=== PATIENT | male | born 1970 | race Caucasian/White ===

== ENCOUNTER 2017-11-19 17:25 | Emergency (ER) | payer SELFPAY ==
[~2017-11-19] VITALS: Ht 172.7 cm; Wt 127.0 kg
[2017-11-19 18:52] LABS: HEMATOCRIT 40.5 % (39.0-50.0); HEMOGLOBIN 12.7 g/dl (14.0-18.0); IMMATURE GRANULOCYTES 0.5 % (0.0-1.0); MEAN CELL VOLUME 85.4 fL CALC (80.0-100.0); MEAN CORPUSCULAR HGB 26.8 pG CALC (26.0-32.0); MEAN CORPUSCULAR HGB CONC 31.4 g/L CALC (32.0-36.0); NEUT# 8.56 thou/uL (1.82-7.42); RED BLOOD COUNT 4.74 mill/uL (4.70-6.10); RED CELL DISTRI WIDTH 17.2 % (11.5-15.5)
[2017-11-19 19:12] LABS: ANION GAP 13 (6-22 (CALC)); BUN 13 mg/dL (9-20); BUN/CREATININE RATIO 18 (12-20 (CALC)); CARBON DIOXIDE 25 mmol/l (22-30); CHLORIDE 101 mmol/l (95-108); CREATININE 0.7 mg/dL (0.7-1.3); GFR > 60 ML/MIN (>=60 (CALC)); GFR FOR AFR.AMER. > 60 ML/MIN (>=60 (CALC)); SODIUM 135 mmol/l (137-146)
[2017-11-19 19:25] LABS: C-REACTIVE PROTEIN 17.8 mg/dL (0-0.9)
[2017-11-20] VITALS: BP 132/78
== END 2017-11-20 | disposition short-term general hospital (02) | DRG 603 ==
LOC: EDBD 17:25 → ED 17:25
PROVIDERS: Family Medicine
DX: L02.415 Cutaneous abscess of right lower limb (principal); M00.9 Pyogenic arthritis, unspecified; M25.551 Pain in right hip; R50.9 Fever, unspecified; G89.29 Other chronic pain

== ENCOUNTER 2017-12-11 11:01 | Emergency (ER) | payer OTHER ==
[~2017-12-11] VITALS: Ht 172.7 cm; Wt 127.3 kg
[~2017-12-11 11:01] MED LIST: CEFTRIAXONE2 G1 IJ; TRAZODONE100 MG PO
[2017-12-11] MEDS ORDERED: PERCOCET 10/31 COMBO PO (11:45)
[2017-12-11 11:50] VITALS: BP 117/56
== END 2017-12-11 11:50 | disposition home or self-care (01) ==
LOC: ED 11:01
DX: M25.551 Pain in right hip (principal); G89.29 Other chronic pain; F17.210 Nicotine dependence, cigarettes, uncomplicated; Z86.14 Personal history of Methicillin resistant Staphylococcus aureus infection

== ENCOUNTER 2017-12-14 14:17 | Emergency (ER) | payer SELFPAY ==
[~2017-12-14] VITALS: Ht 172.7 cm; Wt 127.3 kg
[~2017-12-14 14:17] MED LIST changes: +PERCOCET 10/31 COMBO PO
[2017-12-14 15:59] LABS: ALBUMIN 3.2 g/dL (3.2-5.0); ALKALINE PHOSPHATASE 225 u/l (38-126); BILIRUBIN, TOTAL 1.1 mg/dL (0.0-1.4); BUN 7 mg/dL (9-20); BUN/CREATININE RATIO 13 (12-20 (CALC)); CHLORIDE 102 mmol/l (95-108); CREATININE 0.5 mg/dL (0.7-1.3); GFR > 60 ML/MIN (>=60 (CALC)); GFR FOR AFR.AMER. > 60 ML/MIN (>=60 (CALC)); POTASSIUM 4.6 mmol/l (3.5-5.1); SGPT/ALT 18 u/l (21-72); SODIUM 135 mmol/l (137-146); TOTAL PROTEIN 8.2 g/dL (6.3-8.2)
[2017-12-14 16:00] LABS: ANION GAP 22 (6-22 (CALC)); CARBON DIOXIDE 16 mmol/l (22-30); SGOT/AST 32 u/l (17-59)
[2017-12-14 16:16] LABS: HEMATOCRIT 25.8 % (39.0-50.0); HEMOGLOBIN 7.9 g/dl (14.0-18.0); IMMATURE GRANULOCYTES 1.9 % (0.0-5.0); MEAN CELL VOLUME 85.7 fL CALC (80.0-100.0); MEAN CORPUSCULAR HGB 26.2 pG CALC (26.0-32.0); MEAN CORPUSCULAR HGB CONC 30.6 g/L CALC (32.0-36.0); NEUT# 20.21 thou/uL (1.82-7.42); RED BLOOD COUNT 3.01 mill/uL (4.70-6.10); RED CELL DISTRI WIDTH 18.1 % (11.5-15.5)
[2017-12-14 16:21] LABS: URINE BILIRUBIN - DIPSTICK NEGATIVE (NEGATIVE); URINE BLOOD DIPSTICK MODERATE (NEGATIVE); URINE COLOR YELLOW; URINE GLUCOSE - DIPSTICK NEGATIVE (NEGATIVE); URINE KETONE NEGATIVE (NEGATIVE); URINE LEUK ESTERASE NEGATIVE (NEGATIVE); URINE NITRITE - DIPSTICK NEGATIVE (Negative); URINE PROTEIN - DIPSTICK TRACE mg/dL (NEG-TRACE); URINE SPECIFIC GRAVITY 1.015
[2017-12-14 16:29] LABS: URINE CLARITY SL CLOUDY
[2017-12-14 16:30] LABS: BARBITURATES NEGATIVE (NEGATIVE); COCAINE NEGATIVE (NEGATIVE); METHADONE NEGATIVE (NEGATIVE); TETRAHYDROCANNABIONOL POSITIVE (NEGATIVE); TRICYLIC ANTIDEPRESSANTS NEGATIVE (NEGATIVE); URINE EPITHELIAL CELLS FEW EPI/hpf (0-FEW)
[2017-12-14 16:31] LABS: OXCYCODONE POSITIVE (NEGATIVE)
[2017-12-14 19:00] VITALS: BP 99/52
--- NOTE | 2017-12-16 07:35 | NUR ---
Faxed preliminary blood culture to [facility]
== END 2017-12-14 19:15 | disposition short-term general hospital (02) | DRG 863 ==
LOC: ED 14:17
PROVIDERS: Emergency Medicine
DX: T81.4XXA Infection following a procedure, initial encounter (principal); F17.210 Nicotine dependence, cigarettes, uncomplicated; Y83.8 Other surgical procedures as the cause of abnormal reaction of the patient, or of later complication, without mention of misadventure at the time of the procedure; B96.89 Other specified bacterial agents as the cause of diseases classified elsewhere
CPT/HCPCS: Q9967

== ENCOUNTER 2018-05-06 22:27 | Emergency (ER) | payer SELFPAY ==
[~2018-05-06] VITALS: Ht 172.7 cm; Wt 118.2 kg
[~2018-05-06 22:27] MED LIST changes: +BUPRENORPHIN2 MG SL; +CEFEPIME2 G2 IV; +CEFTRIAXONE2 GM IJ; +GABAPENTIN400 M2 PO; +MYCAMINE100 MG IV; +VANCOMYCIN XX
[2018-05-06] MEDS ORDERED: GABAPENTIN100 MG PO (23:17)
[2018-05-06 23:22] LABS: HEMATOCRIT 46.3 % (39.0-50.0); HEMOGLOBIN 14.8 g/dl (14.0-18.0); IMMATURE GRANULOCYTES 0.5 % (0.0-5.0); MEAN CELL VOLUME 83.4 fL CALC (80.0-100.0); MEAN CORPUSCULAR HGB 26.7 pG CALC (26.0-32.0); NEUT# 10.68 thou/uL (1.82-7.42); RED BLOOD COUNT 5.55 mill/uL (4.70-6.10); RED CELL DISTRI WIDTH 16.8 % (11.5-15.5)
[2018-05-06 23:28] LABS: ALBUMIN 4.3 g/dL (3.2-5.0); ALKALINE PHOSPHATASE 115 u/l (38-126); ANION GAP 17 (6-22 (CALC)); BILIRUBIN, TOTAL 0.7 mg/dL (0.0-1.4); BUN 16 mg/dL (9-20); BUN/CREATININE RATIO 16 (12-20 (CALC)); CARBON DIOXIDE 22 mmol/l (22-30); CHLORIDE 106 mmol/l (95-108); GFR > 60 ML/MIN (>=60 (CALC)); GFR FOR AFR.AMER. > 60 ML/MIN (>=60 (CALC)); SGOT/AST 19 u/l (17-59); SODIUM 141 mmol/l (137-146); TOTAL PROTEIN 9.3 g/dL (6.3-8.2)
[2018-05-07] MEDS ORDERED: PERCOCET 10/31 COMBO PO (00:41)
[2018-05-07] MEDS ORDERED: BACTRIM DS1 TAB PO (00:41)
[2018-05-07 01:00] VITALS: BP 156/78
== END 2018-05-07 01:00 | disposition home or self-care (01) | DRG 556 ==
LOC: ED 22:27
PROVIDERS: Emergency Medicine
DX: M25.551 Pain in right hip (principal); G89.29 Other chronic pain; F17.200 Nicotine dependence, unspecified, uncomplicated

== ENCOUNTER 2018-06-23 15:28 | Emergency (ER) | payer SELFPAY ==
[~2018-06-23] VITALS: Ht 172.7 cm; Wt 127.0 kg
[~2018-06-23 15:28] MED LIST changes: +BACTRIM DS1 TAB PO; +GABAPENTIN100 MG PO
[2018-06-23 16:16] LABS: IMMATURE GRANULOCYTES 0.4 % (0.0-5.0); MEAN CORPUSCULAR HGB CONC 32.2 g/L CALC (32.0-36.0); NEUT# 7.32 thou/uL (1.82-7.42); RED BLOOD COUNT 4.7 mill/uL (4.70-6.10); RED CELL DISTRI WIDTH 15.7 % (11.5-15.5)
[2018-06-23 16:30] LABS: ALBUMIN 3.9 g/dL (3.2-5.0); ALKALINE PHOSPHATASE 124 u/l (38-126); AMYLASE 32 u/l (30-110); ANION GAP 16 (6-22 (CALC)); BILIRUBIN, TOTAL 0.4 mg/dL (0.0-1.4); BUN 10 mg/dL (9-20); BUN/CREATININE RATIO 17 (12-20 (CALC)); CARBON DIOXIDE 23 mmol/l (22-30); CHLORIDE 105 mmol/l (95-108); CREATININE 0.6 mg/dL (0.7-1.3); GFR > 60 ML/MIN (>=60 (CALC)); GFR FOR AFR.AMER. > 60 ML/MIN (>=60 (CALC)); POTASSIUM 4.5 mmol/l (3.5-5.1); SGOT/AST 14 u/l (17-59); SODIUM 139 mmol/l (137-146); TOTAL PROTEIN 8.6 g/dL (6.3-8.2)
[2018-06-23 16:36] LABS: URINE BILIRUBIN - DIPSTICK NEGATIVE (NEGATIVE); URINE BLOOD DIPSTICK TRACE-INTACT (NEGATIVE); URINE COLOR YELLOW; URINE GLUCOSE - DIPSTICK NEGATIVE (NEGATIVE); URINE KETONE NEGATIVE (NEGATIVE); URINE LEUK ESTERASE NEGATIVE (NEGATIVE); URINE NITRITE - DIPSTICK NEGATIVE (Negative); URINE PH 5.5 (4.5-8.0); URINE PROTEIN - DIPSTICK NEGATIVE (NEG-TRACE); URINE SPECIFIC GRAVITY 1.015; URINE UROBILINOGEN - DIPSTICK 0.2 E.U./dL (0.2)
[2018-06-23 16:39] LABS: HEMATOCRIT 39.5 % (39.0-50.0); HEMOGLOBIN 12.7 g/dl (14.0-18.0)
[2018-06-23 16:42] LABS: MYOGLOBIN 18 ng/mL (0 - 121)
[2018-06-23 16:45] LABS: BARBITURATES NEGATIVE (NEGATIVE); COCAINE NEGATIVE (NEGATIVE); METHADONE NEGATIVE (NEGATIVE); TETRAHYDROCANNABIONOL NEGATIVE (NEGATIVE); TRICYLIC ANTIDEPRESSANTS NEGATIVE (NEGATIVE)
[2018-06-23 16:46] LABS: OXCYCODONE NEGATIVE (NEGATIVE)
[2018-06-23] MEDS ORDERED: DILAUDID4 MG PO (18:05)
[2018-06-23 19:45] VITALS: BP 121/79
== END 2018-06-23 19:45 | disposition short-term general hospital (02) | DRG 566 ==
LOC: ED 15:28
PROVIDERS: Emergency Medicine
DX: M89.8X8 Other specified disorders of bone, other site (principal); F17.210 Nicotine dependence, cigarettes, uncomplicated; Z86.14 Personal history of Methicillin resistant Staphylococcus aureus infection
CPT/HCPCS: Q9967

== ENCOUNTER 2018-10-01 17:35 | Emergency (ER) | payer OTHER ==
[~2018-10-01] VITALS: Ht 172.7 cm; Wt 100.0 kg
[~2018-10-01 17:35] MED LIST changes: +DILAUDID4 MG PO
[2018-10-01 18:05] VITALS: BP 170/89
== END 2018-10-01 18:24 | disposition left against medical advice (07) ==
LOC: ED 17:35
DX: F11.23 Opioid dependence with withdrawal (principal); Z91.19 Patient's noncompliance with other medical treatment and regimen

== ENCOUNTER 2018-12-31 19:46 | Emergency (ER) | payer MEDICARE ==
[~2018-12-31] VITALS: Ht 172.7 cm; Wt 130.0 kg
[2018-12-31 21:23] LABS: HEMATOCRIT 40.9 % (39.0-50.0); HEMOGLOBIN 12.5 g/dl (14.0-18.0); IMMATURE GRANULOCYTES 0.8 % (0.0-5.0); MEAN CORPUSCULAR HGB 27.7 pG CALC (26.0-32.0); MEAN CORPUSCULAR HGB CONC 30.6 g/L CALC (32.0-36.0); NEUT# 14.15 thou/uL (1.82-7.42); RED BLOOD COUNT 4.51 mill/uL (4.70-6.10); RED CELL DISTRI WIDTH 15.8 % (11.5-15.5)
[2018-12-31 21:25] LABS: URINE BLOOD DIPSTICK MODERATE (NEGATIVE); URINE COLOR YELLOW; URINE GLUCOSE - DIPSTICK NEGATIVE (NEGATIVE); URINE KETONE NEGATIVE (NEGATIVE); URINE LEUK ESTERASE NEGATIVE (NEGATIVE); URINE NITRITE - DIPSTICK NEGATIVE (Negative); URINE PROTEIN - DIPSTICK 100 mg/dL (NEG-TRACE); URINE SPECIFIC GRAVITY >=1.030; URINE UROBILINOGEN - DIPSTICK 0.2 E.U./dL (0.2)
[2018-12-31 21:26] LABS: URINE BILIRUBIN - DIPSTICK NEGATIVE (NEGATIVE)
[2018-12-31 21:29] LABS: BARBITURATES NEGATIVE (NEGATIVE); COCAINE NEGATIVE (NEGATIVE); METHADONE NEGATIVE (NEGATIVE); OXCYCODONE NEGATIVE (NEGATIVE); TETRAHYDROCANNABIONOL POSITIVE (NEGATIVE); TRICYLIC ANTIDEPRESSANTS NEGATIVE (NEGATIVE)
--- NOTE | 2018-12-31 21:31 | NUR ---
PATIENT WAS RECEIVED IN ER BED 11 AMBUING WITH OXYGEN. PLACING MONITOR ON, WE STARTED AMBUING THE PATIENT WITH 100% OXYGEN. WAS INTUBATED BY DR CABA WITH A # 7 ETT AT 24 CM OF THE LIPS. AFTER X-RAY DONE PUSHED IT DOWN TO 26. ETT PLACEMENT VERIFIED BY ETCO2 AND THEN LISTENING TO BREATH SOUND. SUCTIONED LARGE AMOUNT OF THICK YELLOWISH BLOODY SECRETION. PLACED ON VENTILATOR WITH THE FOLLOWING SETTING: AC 16, 600, 5 100%. FIO2 DECREASED TO 60% AFTER ABG RESULT. WILL CONTINUE TO MONITOR.
[2018-12-31 21:33] LABS: URINE BACTERIA MANY hpf
[2018-12-31 21:39] LABS: ALBUMIN 3.8 g/dL (3.2-5.0); ALKALINE PHOSPHATASE 106 u/l (38-126); BILIRUBIN, TOTAL 0.5 mg/dL (0.0-1.4); BUN 15 mg/dL (9-20); BUN/CREATININE RATIO 21 (12-20 (CALC)); CHLORIDE 101 mmol/l (95-108); CREATININE 0.7 mg/dL (0.7-1.3); GFR > 60 ML/MIN (>=60 (CALC)); GFR FOR AFR.AMER. > 60 ML/MIN (>=60 (CALC)); POTASSIUM 4.9 mmol/l (3.5-5.1); SODIUM 138 mmol/l (137-146); TOTAL PROTEIN 8.2 g/dL (6.3-8.2)
[2018-12-31 21:41] LABS: MEAN CELL VOLUME 90.7 fL CALC (80.0-100.0)
[2018-12-31 21:43] LABS: ANION GAP 13 (6-22 (CALC)); CARBON DIOXIDE 29 mmol/l (22-30); ETHYL ALCOHOL 0 mg/dl (0-30); SGOT/AST 37 u/l (17-59)
[2018-12-31 21:50] LABS: MYOGLOBIN 198 ng/mL (0 - 121)
[2019-01-01 00:12] VITALS: BP 104/59
== END 2019-01-01 00:12 | disposition short-term general hospital (02) ==
LOC: ED 19:46
PROVIDERS: Emergency Medicine
PROC: 0BH17EZ Insertion of Endotracheal Airway into Trachea, Via Natural or Artificial Opening (ICD-10-PCS; principal; 2018-12-31)
PROC: 0T9B70Z Drainage of Bladder with Drainage Device, Via Natural or Artificial Opening (ICD-10-PCS; 2018-12-31)
DX: J96.90 Respiratory failure, unspecified, unspecified whether with hypoxia or hypercapnia (principal); F19.129 Other psychoactive substance abuse with intoxication, unspecified; R74.8 Abnormal levels of other serum enzymes; F17.200 Nicotine dependence, unspecified, uncomplicated; Z86.14 Personal history of Methicillin resistant Staphylococcus aureus infection

== ENCOUNTER 2021-01-18 19:45 | Emergency (ER) | payer MEDICARE ==
[~2021-01-18] VITALS: Ht 172.7 cm; Wt 180.0 kg
[2021-01-18 20:37] LABS: URINE BLOOD DIPSTICK NEGATIVE (NEGATIVE); URINE GLUCOSE - DIPSTICK NEGATIVE (NEGATIVE); URINE KETONE NEGATIVE (NEGATIVE); URINE LEUK ESTERASE NEGATIVE (NEGATIVE); URINE PH 5.5 (4.5-8.0); URINE PROTEIN - DIPSTICK 100 mg/dL (NEG-TRACE); URINE SPECIFIC GRAVITY >=1.030
[2021-01-18 20:39] LABS: MEAN CORPUSCULAR HGB 29.3 pG CALC (26.0-32.0); MEAN CORPUSCULAR HGB CONC 29.1 g/dL CAL (32.0-36.0); NEUT# 16.93 thou/uL (1.82-7.42); RED BLOOD COUNT 5.09 mill/uL (4.70-6.10); RED CELL DISTRI WIDTH 18.8 % (11.5-15.5)
[2021-01-18 20:45] LABS: URINE BILIRUBIN - DIPSTICK SMALL (NEGATIVE); URINE COLOR DK. YELLOW; URINE NITRITE - DIPSTICK NEGATIVE (Negative)
[2021-01-18 20:47] LABS: ALBUMIN 4.2 g/dL (3.2-5.0); ALKALINE PHOSPHATASE 96 u/l (38-126); BILIRUBIN, TOTAL 0.7 mg/dL (0.0-1.4); BUN 23 mg/dL (9-20); CARBON DIOXIDE 31 mmol/l (22-30); CHLORIDE 94 mmol/l (95-108); ETHYL ALCOHOL 0 mg/dl (0-30); SODIUM 133 mmol/l (137-146); TOTAL PROTEIN 9.2 g/dL (6.3-8.2)
[2021-01-18 20:56] LABS: URINE RBC 0-2 RBC/hpf (0-5)
[2021-01-18 20:57] LABS: HEMATOCRIT 51.2 % (39.0-50.0); HEMOGLOBIN 14.9 g/dl (14.0-18.0); MEAN CELL VOLUME 100.6 fL CALC (80.0-100.0); URINE SQUAMOUS EPITHELIAL CELL MODERATE EPI/hpf (0-FEW); URINE WBC 0-2 WBC/hpf (0-5)
[2021-01-18 20:58] LABS: MYOGLOBIN 476 ng/mL (0 - 121)
[2021-01-18 21:04] LABS: BUN/CREATININE RATIO 8 (12-20 (CALC)); CREATININE 2.9 mg/dL (0.7-1.3); GFR 23 ML/MIN (>=60 (CALC)); GFR FOR AFR.AMER. 28 ML/MIN (>=60 (CALC))
[2021-01-18 21:05] LABS: ANION GAP 15 (6-22 (CALC)); SGOT/AST 222 u/l (17-59)
[2021-01-18 21:07] LABS: POTASSIUM 7.3 mmol/l (3.5-5.1)
[2021-01-18 23:54] LABS: CREATININE 2.4 mg/dL (0.7-1.3)
[2021-01-19 00:07] LABS: POTASSIUM 6.7 mmol/l (3.5-5.1)
[2021-01-19 00:20] VITALS: BP 128/87
[2021-01-19] MEDS ORDERED: TRAZODONE300 MG PO (07:19)
[2021-01-19] MEDS ORDERED: GABAPENTIN100 MG PO (07:20)
[2021-01-19] MEDS ORDERED: SUBUTEX PO (07:22)
== END 2021-01-19 00:20 | disposition short-term general hospital (02) ==
LOC: ED 19:45
PROVIDERS: Emergency Medicine
PROC: 0T9B70Z Drainage of Bladder with Drainage Device, Via Natural or Artificial Opening (ICD-10-PCS; principal; 2021-01-18)
PROC: 0BH17EZ Insertion of Endotracheal Airway into Trachea, Via Natural or Artificial Opening (ICD-10-PCS; 2021-01-18)
DX: T50.901A Poisoning by unspecified drugs, medicaments and biological substances, accidental (unintentional), initial encounter (principal); A41.9 Sepsis, unspecified organism; R79.89 Other specified abnormal findings of blood chemistry; E87.5 Hyperkalemia; F32.9 Major depressive disorder, single episode, unspecified; F17.200 Nicotine dependence, unspecified, uncomplicated; Z86.14 Personal history of Methicillin resistant Staphylococcus aureus infection; Z20.822 Contact with and (suspected) exposure to COVID-19